=== PATIENT | female | born 1935 ===

== ENCOUNTER 2022-07-08 11:29 | Outpatient (CLI) | payer OTHER | END 2022-07-08 11:30 | disposition home or self-care (01) | LOC: SONOGRAMA 11:29 | PROVIDERS: ATTEND Pathology Anatomic Pathology & Clinical Pathology | DX: D34 Benign neoplasm of thyroid gland (principal); E04.9 Nontoxic goiter, unspecified; E04.1 Nontoxic single thyroid nodule ==